=== PATIENT | male | born 1955 | race Caucasian/White ===

== ENCOUNTER → 2019-12-30 11:59 | Outpatient (BNVA) | payer MEDICAID, SELFPAY | PROVIDERS: Visit Provider Nurse Practitioner Family | DX: J44.9 Chronic obstructive pulmonary disease, unspecified (principal); R53.83 Other fatigue; Z12.5 Encounter for screening for malignant neoplasm of prostate; E55.9 Vitamin D deficiency, unspecified; Z79.899 Other long term (current) drug therapy; E78.2 Mixed hyperlipidemia | CPT/HCPCS: 80053; 80061; 81001; 82306; 83036; 84153; 84443; 85025 ==

== ENCOUNTER 2020-02-14 13:43 | Outpatient (CLI) | payer MEDICAID, SELFPAY ==
--- NOTE | 2020-02-14 14:00 | CT_ITS ---
WS: [id number] CTA ABDOMEN PELVIS TECHNIQUE: Noncontrast plus contrast enhanced CTA of the abdominal aorta with coronal and sagittal re formatted images and additional MIP Images. CLINICAL INFORMATION: F/U CTA COMPARISON: October 16, 2018 DLP: 2781.[address] scans at [facility] use at least one of these dose optimization techniques: automat ed exposure control; mA and/or kV adjustment per patient size (includes targeted exams where dose is matched to clinical indication); or iterative reconstruction. FINDINGS: Since the prior examination, interval placement of aortic endograft with biiliac extension. Excluded aneurysm sac is decreased in size since the prior examination. No evidence of endoleak on the delayed imaging. Celiac and SMA appear patent. Proximal renal arteries appear patent. Normal renal parenchym al enhancement. Common iliac arteries and external iliac arteries are patent. Aneurysm including the excluded aneurysm sac measures approximately 4.1 x 3.7 cm AP by transverse. Emphysematous changes in the lung bases. Diffuse fatty infiltration liver. Multiple low-attenuation w ell-circumscribed subcentimeter lesions in the liver some of which are too small to characterize but likely represent hepatic cysts. Exophytic left renal cyst measuring 11 mm. Tiny right renal cyst. Nor mal gastroesophageal junction. Tiny amount of sludge in the gallbladder.. Incidental fat-containing umbilical hernia. Additional rig ht periumbilical fat containing hernia. Three additional small midline supraumbilical hernias contain ing fat unchanged from previous. No herniated bowel. Diverticulosis. No evidence of acute diverticuli tis. No inguinal lymphadenopathy. Chronic bilateral pars defects. Slight anterolisthesis L5 on S1 domingo suring [address]/CT angio abdomen pelvis [id number] IMPRESSION: 1. Interval aortic endograft repair with biiliac extension. No evidence of end oleak. Interval decrease in size of the excluded aneurysm sac. 2. Proximal renal arteries are patent. Normal bilateral renal parenchymal enha ncement. 3. No other significant changes from previous. 4. Celiac and SMA are patent. 5. Multiple low-attenuation lesions in the liver some are too small to charact erize but likely hepatic cysts. This can be followed up with ultrasound. 6. Small amount of sludge in the gallbladder. This can also be followed up wit h ultrasound. 7. Prominent fat-containing umbilical hernia with adjacent right eccentric per iumbilical hernia also containing fat. No herniated bowel. Three additional sma ller fat-containing supraumbilical hernias in the midline.
[2020-02-14] MEDS: iohexol 350 mg/mL 100 mL Btl IV (14:56)
== END 2020-02-14 13:44 | disposition home or self-care (01) ==
PROVIDERS: PCP Family Medicine; Visit Provider Thoracic Surgery (Cardiothoracic Vascular Surgery)
DX: I71.4 Abdominal aortic aneurysm, without rupture (principal); K76.9 Liver disease, unspecified; K42.9 Umbilical hernia without obstruction or gangrene
CPT/HCPCS: 74174; Q9967

== ENCOUNTER 2020-08-17 07:54 | Outpatient (CLI) | payer MEDICAID, SELFPAY ==
--- NOTE | 2020-08-17 08:30 | CT_ITS ---
WS: [id number] CT CHEST WITHOUT INTRAVENOUS CONTRAST HISTORY: smoker, wheezing, TECHNIQUE: Contiguous 5 mm axial imaging performed on the thorax. Coronal and sagittal reformats are submitted. All CT scans at [facility] use at least one of these dose optimization techniq ues: automated exposure control; mA and/or kV adjustment per patient size (includes targeted exams wh ere dose is matched to clinical indication); or iterative reconstruction. CONTRAST: None DLP: 781.78 mGy.cm COMPARISON: 08/01/2020 Lungs and central airway: Marked pulmonary hyperexpansion with changes of centrilobular and parasepta l emphysema. Pleural thickening and areas of atelectasis or scar at the lingula and RIGHT middle lobe . Soft tissue mass in the medial RIGHT upper lobe abuts the mediastinal fat measuring 2.6 x 1.8 cm. T here is adjacent stranding extending towards the pleura. There are additional scattered areas of bron chiectasis in the RIGHT middle and RIGHT lower lobes. To a lesser extent the LEFT upper lobe also has bronchiectasis. Pleura: Normal. No pleural effusion. Heart and pericardium: Normal size heart with no pericardial effusion. Mediastinum and paola: No additional mediastinal or hilar adenopathy or lymph nodes identified. Vessels: Ectatic thoracic aorta and calcifications. Pulmonary artery size is normal. Chest wall and lower neck: No soft tissue masses. Upper abdomen: There are a few scattered hypodensities within the liver cannot be further characteriz ed without IV contrast. These are similar in size to 02/14/2020. The adrenal glands are normal. Status post endovascular grafting of aorta. The graft is only minimally visualized along its superior aspec t. There is an exophytic cyst from the upper pole of the LEFT kidney which was also seen on the prior study. Osseous structures: Increase in thoracic kyphosis. CT/CT chest wo con [id number] IMPRESSION: 1. Severe centrilobular and paraseptal emphysema. 2. Soft tissue nodule medial RIGHT upper lobe abuts the mediastinum measuring 2.6 x 1.8 cm. Not visualized on prior studies. This may be an area of chronic a telectasis, fibrosis or early neoplasm. Suggest repeat chest CT with IV contras t in 3 months to evaluate stability. IV contrast will be important for enhancem ent and to evaluate for adenopathy. 3. Multilobar mild bronchiectasis.
== END 2020-08-17 07:55 | disposition home or self-care (01) ==
LOC: CT 07:56
PROVIDERS: PCP Family Medicine; Visit Provider Family Medicine
DX: F17.200 Nicotine dependence, unspecified, uncomplicated (principal); R06.2 Wheezing; J43.2 Centrilobular emphysema; R91.1 Solitary pulmonary nodule; J47.9 Bronchiectasis, uncomplicated
CPT/HCPCS: 71046; 71250

== ENCOUNTER → 2020-09-21 12:31 | Outpatient (BNVA) | payer MEDICAID, SELFPAY | PROVIDERS: PCP Family Medicine; Visit Provider Internal Medicine Critical Care Medicine | DX: Z11.59 Encounter for screening for other viral diseases (principal); J44.9 Chronic obstructive pulmonary disease, unspecified | CPT/HCPCS: 87635 ==

== ENCOUNTER → 2021-12-20 11:17 | Outpatient (BNVA) | payer MEDICAID, SELFPAY | PROVIDERS: PCP Family Medicine; Visit Provider Family Medicine | DX: M54.9 Dorsalgia, unspecified (principal); G89.29 Other chronic pain; J44.9 Chronic obstructive pulmonary disease, unspecified; Z12.2 Encounter for screening for malignant neoplasm of respiratory organs; E78.2 Mixed hyperlipidemia; F17.200 Nicotine dependence, unspecified, uncomplicated | CPT/HCPCS: 80053; 80061; 83036; 84443; 85025; G0103 ==

== ENCOUNTER → 2025-07-25 08:43 | Outpatient (BNVA) | payer MEDICAID, SELFPAY | PROVIDERS: PCP Family Medicine; Visit Provider Nurse Practitioner Family | DX: J44.9 Chronic obstructive pulmonary disease, unspecified (principal); Z79.51 Long term (current) use of inhaled steroids; R91.1 Solitary pulmonary nodule; E55.9 Vitamin D deficiency, unspecified; K42.9 Umbilical hernia without obstruction or gangrene; R53.83 Other fatigue; Z79.899 Other long term (current) drug therapy; I70.0 Atherosclerosis of aorta; J98.4 Other disorders of lung | CPT/HCPCS: 71046; 80053; 80061; 81003; 82306; 82310; 83970; 84443; 85025 ==

== ENCOUNTER 2025-08-15 07:42 | Outpatient (CLI) | payer MEDICAID, SELFPAY ==
--- NOTE | 2025-08-15 08:30 | CT_ITS ---
WS: [id number] CT chest w con* [id number] HISTORY: R91.1 - Solitary pulmonary nodule TECHNIQUE: Axial imaging performed through the thorax. Coronal and sagittal reformats are submitted. All CT scans at [facility] use at least one of these dose optimization techniques: automated exposure control; mA and/or kV adjustment per patient size (includes targeted exams where dose is matched to clinical indication); or iterative reconstruction. CONTRAST: Omnipaque 350; 100 mL IV. DLP: 426.68 mGy.cm COMPARISON: 08/17/2020, chest radiograph 07/25/2025 Lungs and central airway: Severe pulmonary hyperexpansion. Paraseptal and centrilobular emphysema. Numerous consolidations within both lungs have developed since 08/17/2020. The largest nodule in the LEFT upper lobe measures 2.0 x 2.1 x 2.2 cm. There is a tiny central cavitation and also calcifications. Additional smaller irregular consolidation LEFT upper lobe measures 1.6 x 1.7 cm. Additional nodule measuring 0.5 x 0.8 cm in the superior segment LEFT lower lobe abutting the fissure. Additional 0.4 cm nodule LEFT lower lobe. Numerous irregular nodules RIGHT upper lobe. The largest measures 0.7 x 1.0 x 0.8 cm. This nodule is slightly spiculated. There are a few additional smaller nodules scattered in the RIGHT upper lobe. Nodule measures 0.7 x 0.9 cm in the as ago esophageal fissure. 0.5 mm nodule at the RIGHT lung base. Several of these nodules contain central calcifications. Pleura: Normal. No pleural effusion. Heart and pericardium: Normal size heart with no pericardial effusion. Mediastinum and paola: RIGHT hilar lymph node 14 mm is indeterminate. Vessels: Extensive atherosclerosis aorta. Pulmonary artery size is normal. Chest wall and lower neck: No soft tissue masses. Upper abdomen: Scattered hypodensities in the visualized liver. These appear to be present on the study from 2019. No adrenal mass. Bilateral renal cysts. Partially visualized abdominal aortic graft. Osseous structures: Mild increase in thoracic kyphosis. CT/CT chest w con* [id number] IMPRESSION: 1. Multi lobar pulmonary nodules. Some of these nodules are well-circumscribed and others are spiculated. The largest nodule 2.0 x 2.1 x 2.2 cm in the LEFT u pper lobe. Differential includes benign and malignant etiologies. Some of these nodules contain central calcifications which can be seen with benign and malig nant processes. Recommend follow-up PET/CT imaging at this time. 2. Severe paraseptal and centrilobular emphysema. 3. No adrenal mass. 4. Scattered hypodensities in the liver were present on the prior study from 2 020. Probably representing small cysts.
[2025-08-15] MEDS: iohexol 350 mg/mL 500 mL Btl (per mL) IV (08:31)
== END 2025-08-15 07:43 | disposition home or self-care (01) ==
LOC: RAD 07:43
PROVIDERS: PCP Family Medicine; Visit Provider Nurse Practitioner Family
DX: R91.1 Solitary pulmonary nodule (principal); J43.2 Centrilobular emphysema; R91.8 Other nonspecific abnormal finding of lung field
CPT/HCPCS: 71260

== ENCOUNTER → 2025-08-25 07:50 | Outpatient (BNVA) | payer MEDICAID, SELFPAY | PROVIDERS: PCP Family Medicine; Visit Provider Student in an Organized Health Care Education/Training Program | DX: K46.9 Unspecified abdominal hernia without obstruction or gangrene (principal); R03.0 Elevated blood-pressure reading, without diagnosis of hypertension | CPT/HCPCS: 99203 ==

== ENCOUNTER 2025-08-26 10:55 | Outpatient (CLI) | payer MEDICAID, SELFPAY ==
--- NOTE | 2025-08-26 11:00 | PETR_ITS ---
PROCEDURE INFORMATION: Exam: PET/CT Skull Base to Mid-thigh Exam date and time: 08/26/2025 12:05 PM Age: 70 years old Clinical indication: Abnormal findings; Abnormal CT; Additional info: R91.8 - other nonspecific abnormal finding of lung field, CT resulted 08/15/2025 multi lobar pulmonary nodules. Some LABS AND CLINICAL REPORTS: Glucose: 112 mg/dl Treatment strategy for malignancy (PET staging): Initial Staging (PI) TECHNIQUE: Imaging protocol: Following at least four-hour fasting and following the injection of radiopharmaceutical, low dose CT images were obtained. Then, PET images were obtained. Attenuation corrected images were constructed using the CT scan. Fused images of PET and CT were reviewed. The standardized uptake values (SUV) reported below are maximum values within a region of interest, expressed in gm/ml. Exam includes orbital meatal line to mid-thigh. SUV normalization method: BodyWeight Radiopharmaceutical: 11 mCi F-18 FDG (Fluorodeoxyglucose), IV. Time of imaging post radiopharmaceutical administration: 51 minutes Injection site: L AC COMPARISON: 1. CT chest w con* [id number] 08/15/2025 8:18 AM 2. PT PET Scan 09/23/2020 8:41 AM FINDINGS: Brain: Visualized brain has normal physiologic uptake. Salivary glands: FDG avid left parotid focus showing SUV max 14.8 on axial image 27, previously 6.9, with stable subtle suggested underlying mildly hyperdense nodule, likely represents benign primary neoplasm. Pharynx: No abnormal uptake. Larynx: No abnormal uptake. Lungs, pleura and trachea: Advanced upper lung predominant emphysematous change. Bilateral multilobar pulmonary nodules are partially calcified and largely non FDG-avid, index left upper lobe nodule measures 2.5 cm on axial image 64 with SUV max 2.3 of the medial aspect. More anterior focal area of reticulation with associated low-level FDG uptake showing SUV max 2.9, axial image 69, is likely inflammatory. Heart: Normal physiologic uptake. Coronary arteries: Mild coronary artery calcification. Mediastinal space: No abnormal uptake. Liver: No abnormal uptake. Redemonstrated simple appearing cyst and subcentimeter hypodensities too small to characterize. Gallbladder and biliary ducts: No abnormal uptake. Pancreas: No abnormal uptake. Spleen: No abnormal uptake. Adrenal glands: No abnormal uptake. Kidneys and ureters: Normal physiologic uptake. Simple appearing left renal cyst. Stomach and bowel: No abnormal uptake. Colonic diverticulosis without findings of diverticulitis. Vasculature: No abnormal uptake. Mild systemic atherosclerotic calcification with stable aorto bi-iliac stent graft. Lymph nodes: No abnormal uptake. No lymphadenopathy in the head, neck, chest, abdomen, pelvis, and extremities. Skeleton: No abnormal uptake in the visualized axial and appendicular skeleton. Degenerative changes along the spine and shoulders. Soft tissues: Linear [id number]-right neck and upper back muscle FDG uptake without underlying CT abnormality is likely benign physiologic activation and/or strain. Multiple fat containing ventral abdominal wall hernias, the largest located right lateral to the umbilicus with hernia sac measuring 5.6 cm on axial image 181. METRICS: Mediastinal blood pool: SUV mean 2.0 Liver uptake: SUV mean 2.4 PET/PET skull to thigh INIT [id number] IMPRESSION: 1. Bilateral multilobar pulmonary nodules are partially calcified and largely non FDG-avid with very low-level uptake at index medial left upper lobe nodule, likely benign. 2. Small focal area of reticulation with associated low-level FDG uptake at the left upper lobe is likely inflammatory. 3. Additional chronic and incidental findings as above.
== END 2025-08-26 10:56 | disposition home or self-care (01) ==
LOC: RAD 10:55
PROVIDERS: PCP Family Medicine; Visit Provider Nurse Practitioner Family
DX: R91.8 Other nonspecific abnormal finding of lung field (principal); N28.1 Cyst of kidney, acquired; K57.30 Diverticulosis of large intestine without perforation or abscess without bleeding; K43.9 Ventral hernia without obstruction or gangrene
CPT/HCPCS: 78815; A9552

== ENCOUNTER → 2025-09-01 08:23 | Outpatient (BNVA) | payer MEDICAID, SELFPAY | PROVIDERS: PCP Family Medicine; Referring Provider Nurse Practitioner Family; Visit Provider Internal Medicine | DX: R91.8 Other nonspecific abnormal finding of lung field (principal); J43.9 Emphysema, unspecified; D11.0 Benign neoplasm of parotid gland; F17.210 Nicotine dependence, cigarettes, uncomplicated; J44.9 Chronic obstructive pulmonary disease, unspecified | CPT/HCPCS: 99204 ==

== ENCOUNTER 2025-09-21 11:43 | Outpatient (CLI) | payer MEDICAID, SELFPAY ==
[2025-09-21 12:17] VITALS: PULSE 75; RESP 20; O2SAT 93
== END 2025-09-21 11:44 | disposition home or self-care (01) ==
LOC: RT 11:44
PROVIDERS: PCP Family Medicine; Visit Provider Internal Medicine
DX: J44.9 Chronic obstructive pulmonary disease, unspecified (principal)
CPT/HCPCS: 94060; 94726; 94729; J7613

== ENCOUNTER 2025-09-27 08:46 | Outpatient (CLI) | payer MEDICAID, SELFPAY ==
--- NOTE | 2025-09-27 09:00 | CT_ITS ---
WS: [id number] CT chest ION (PULM ONLY) [id number] HISTORY: Need CT prior to 10/05/25 procedure TECHNIQUE: Axial imaging performed through the thorax. Coronal and sagittal reformats are submitted. All CT scans at [facility] use at least one of these dose optimization techniques: automated exposure control; mA and/or kV adjustment per patient size (includes targeted exams where dose is matched to clinical indication); or iterative reconstruction. CONTRAST: None DLP: 354.72 mGy COMPARISON: 08/15/2025, PET/CT 08/26/2025 Imaging is obtained prior to bronchoscopy. Multiple, bilateral pulmonary nodules are identified on a background of centrilobular and paraseptal emphysema. Largest nodule in the LEFT upper lobe measures 2.7 x 1.9 cm and contains central calcifications. Numerous pulmonary nodules and additional opacifications are reidentified. There is a subtle cavitary lesion in the central LEFT upper lobe with a maximum diameter of 1.2 cm. No progression or improvement of the pulmonary nodules. Atherosclerosis aorta. No aneurysm. No adenopathy identified but this study was performed without IV contrast. Stent graft noted in the abdominal aorta. Exophytic cyst from the LEFT kidney is unchanged. CT/CT chest ION (PULM ONLY) [id number] IMPRESSION: CT imaging provided prior to navigational bronchoscopy.
== END 2025-09-27 08:47 | disposition home or self-care (01) ==
LOC: RAD 08:47
PROVIDERS: PCP Family Medicine; Visit Provider Internal Medicine
DX: R91.8 Other nonspecific abnormal finding of lung field (principal); I70.0 Atherosclerosis of aorta; N28.1 Cyst of kidney, acquired; J98.4 Other disorders of lung
CPT/HCPCS: 71250

== ENCOUNTER 2025-10-05 08:47 | Day surgery (SDC) | payer MEDICAID, SELFPAY ==
--- NOTE | 2025-10-04 10:48 | P.ANESASSM_ITS ---
Pre-Anesthetic Assessment Height/Weight: Height 5 ft 11 in Preop Diagnosis: Lung mass Operation Date: 10/05/25 11:00 Proposed Procedures p Ion - Robotic Bronch With EBUS(Not Applicable) - Kari Denton MD s Ebus(Not Applicable) - MD luis Fang Bronchoscopy(Not Applicable) - Kari Denton MD Was Beta Reynaldo taken within 24 hours: N/A Was Clonidine taken within 24 hours: N/A Social Tobacco and No alcohol Exam alert, oriented x 3 and regular rate & rhythm Diminished breath sounds throughout even with amplified stethoscope Airway Submandibular: within normal limits Cervical ROM: within normal limits Mallampati: Class III Comments: Comments: Huge patricio, Top dentures. Multiple missing teeth on the bottom. Denies any loose Anesthetic Plan ASA status: 4 Anesthesia: General Other: No prior issues with anesthesia NPO since yesterday evening History of GERD on Protonix History of COPD Uses inhaler when he needs it Aortic aneurysm repair in 2018 Preop visit by primary care physician suggest preop albuterol prior to procedure Labs 07/25/2025 reviewed acceptable for procedure Diminished breath sounds bilaterally. Preop DuoNeb planned METs less than 4 Plan for GETA Medications/Allergies Home Medications ?Medication ?Instructions ?Recorded ?Confirmed ?Last Taken ?Type nebulizer #1 ea 08/29/20 10/04/25 Unkn own Rx hydrocodone 10 mg-acetaminophen 1 tab PO Q6H PRN back pain 30 days 07/26/24 10/04/25 10/03/25 Rx 325 mg tablet #95 tabs albuterol sulfate 90 mcg/actuation 2 puff inhalation Q 6H PRN copd 30 11/23/24 10/04/25 10/02/25 Rx aerosol inhaler days #8.5 grams budesonide 160 mcg-glycopyr 9 2 inh inhalation BID #10 .7 grams 07/25/25 10/04/25 10/03/25 Rx mcg-formot 4.8 mcg/actuation HFA inhaler (Breztri Aerosphere) albuterol sulfate 0.63 mg/3 mL 0.63 mg (3 mL) inhalati on QID PRN 09/01/25 10/04/25 10/03/25 Rx solution for nebulization shortness of breath or wheez ing #90 mL ibuprofen 600 mg tablet 600 mg PO DAILY PRN Pain 11/ 13/25 12/16/25 Unknown Hist ory varenicline tartrate 0.5 mg (11)-1 See Rx Instructions PO PER PKG DIR 09/01/25 10/04/25 10/02/25 Rx mg (42) tablets in a dose pack #53 ea (Chantix Starting Month Box) pantoprazole 40 mg tablet,delayed 40 mg PO DAILY PRN h eart burn 10/03/25 10/04/25 Unknown History release Allergies Allergy/AdvReac Type Severity Reaction Status Date / Time No Known Allergies Allergy Verified 10/03/25 08:27 [facility] Anesthesia Medical History (Updated 09/06/25 @ 15:17 by EPHRAIM Howell) Nodule of parotid gland Centrilobular emphysema CT Chest 08/15/2025 Severe paraseptal and centrilobular emphysema. Lung mass Nodule of left lung Periumbilical hernia COPD on long-term inhaled steroid therapy Umbilical hernia without obstruction and without gangrene COPD with exacerbation Lower respiratory infection Encounter for smoking cessation counseling Vitamin D deficiency Medication management Abdominal aneurysm January 02, 2020 underwent endovascular repair of abdominal aortic aneurysm. Chronic back pain Chronic obstructive pulmonary disease, unspecified COPD type Social History Smoking and tobacco/nicotine status: current every day tobacco/nicotine user cigarettes Packs smoked per day: 2 Years cigarettes smoked: 40 Second hand smoke exposure: Yes Alcohol intake: former Substance/Drug Use: never Lives independently: Yes Household members: children Marital status: service: No Current occupational status: disabled Do you think of yourself as: Straight/Heterosexual Current gender identity: Male
[2025-10-05] VITALS (13 sets, daily range): BP systolic 111–140; BP diastolic 62–86; PULSE 69–82; RESP 16–23; TEMP 36.4–37.3; O2SAT 88–97; BMI 25.7
--- NOTE | 2025-10-05 09:13 | PM.HP ---
Providers/Chief Complaint Primary Care Provider: Tayo Aguilar MD Chief Complaint: R91.1 History of Present Illness This is a 70-year-old male with past medical history of COPD and multiple lung nodules 2.2 cm left upper lobe punctate calcifications, not PET avid here to establish care with me today referred by Dr. Han Meeting arranged after lung nodules were identified on CT. Smoking history of 50 years noted. Family history of lung cancer acknowledged. The patient recalls no severe prior lung infections. Discussed recent imaging: CT shows emphysema with a large nodule in the left upper lobe and smaller nodules on the right, along with calcified lymph nodes. PET scan did not show uptake in the nodules; however, it was explained that slow-growing lung cancers may not be detected on PET. Procedure timing discussed due to approaching holidays; the patient agreed to schedule a biopsy in early September. Reports using an inhaler and a nebulizer; Duoneb currently used once daily. Advised to use inhaler consistently every day. Wheezing was noted during the visit. Risks of general anesthesia- bleeding, pneumothorax, and rare cases cardiopulmonary collapse and explained to the patient and he agrees to proceed Data: CT chest 08/15/2025-left upper lobe 2.2 cm lung nodule with tiny central cavitations and calcifications, additional nodule 0.8 cm left lower lobe numerous other irregular nodules right upper lobe 0.8 cm, right hilar lymph node 14 mm PET/CT 08/26/2025-left upper lobe 2.5 cm lung nodule low PET uptake 2.9. Although with mild punctate central calcification still looks very suspicious for cancer. Medications/Allergies Home Medications ?Medication ?Instructions ?Recorded ?Confirmed ?Last Taken ?Type nebulizer #1 ea 08/29/20 10/04/25 Unknown Rx hydrocodone 10 mg-acetaminophen 1 tab PO Q6H PRN back pain 30 days 07/26/24 10/04/25 10/03/25 Rx 325 mg tablet #95 tabs albuterol sulfate 90 mcg/actuation 2 puff inhalation Q6H PRN copd 30 11/23/24 10/04/25 10/02/25 Rx aerosol inhaler days #8.5 grams budesonide 160 mcg-glycopyr 9 2 inh inhalation BID #10.7 grams 07/25/25 10/04/25 10/03/25 Rx mcg-formot 4.8 mcg/actuation HFA inhaler (Charotaggaphere) albuterol sulfate 0.63 mg/3 mL 0.63 mg (3 mL) inhalation QID PRN 09/01/25 10/04/25 10/03/25 Rx solution for nebulization shortness of breath or wheezing #90 mL ibuprofen 600 mg tablet 600 mg PO DAILY PRN Pain 09/01/25 10/04/25 Unknown History varenicline tartrate 0.5 mg (11)-1 See Rx Instructions PO PER PKG DIR 09/01/25 10/04/25 10/02/25 Rx mg (42) tablets in a dose pack #53 ea (Chantix Starting Month Box) pantoprazole 40 mg tablet,delayed 40 mg PO DAILY PRN heart burn 10/03/25 10/04/25 Unknown History release Allergies Allergy/AdvReac Type Severity Reaction Status Date / Time No Known Allergies Allergy Verified 10/03/25 08:27 PFSH Acute PFSH: Medical History (Updated 09/06/25 @ 15:17 by EPHRAIM Howell) Nodule of parotid gland Centrilobular emphysema CT Chest 08/15/2025 Severe paraseptal and centrilobular emphysema. Lung mass Nodule of left lung Periumbilical hernia COPD on long-term inhaled steroid therapy Umbilical hernia without obstruction and without gangrene COPD with exacerbation Lower respiratory infection Encounter for smoking cessation counseling Vitamin D deficiency Medication management Abdominal aneurysm January 02, 2020 underwent endovascular repair of abdominal aortic aneurysm. Chronic back pain Chronic obstructive pulmonary disease, unspecified COPD type Social History Smoking and tobacco/nicotine status: current every day tobacco/nicotine user cigarettes Packs smoked per day: 2 Years cigarettes smoked: 40 Second hand smoke exposure: Yes Alcohol intake: former Substance/Drug Use: never Lives independently: Yes Household members: children Marital status: service: No Current occupational status: disabled Do you think of yourself as: Straight/Heterosexual Current gender identity: Male Vitals/I&O/Wt Last Vital Signs Temp 99.2 F 10/05/25 09:06 Pulse 79 10/05/25 09:06 Resp 18 10/05/25 09:06 BP 134/77 10/05/25 09:06 Pulse Ox 91 10/05/25 09:06 O2 Del Method Room Air 10/05/25 09:06 Weight last 48 hrs Weight 185 lb A&P PDMP PDMP Reviewed: Not Reviewed Attestations Medical Necessity Statement*: for robotic navigational bronchoscopy Coding Level of Care Code Acute Code for Chg Fwd
[2025-10-05 09:38] LABS: Hematocrit 48.8 % (37-53); Hemoglobin 16.50 g/dL (11.27-16.99); Mean Corpuscular HGB Conc 33.8 g/dL (30-55); Mean Corpuscular Hemoglobin 31.1 pg (27-33); Mean Corpuscular Volume 92.1 fl (82-101); Nucleated Red Blood Cells % 0 %; Platelet Count 239 10^3/cmm (157-399); Red Blood Count 5.30 10^6/uL (3.85-5.65); White Blood Count 8.18 10^3/uL (3.29-11.43)
--- NOTE | 2025-10-05 09:45 | SC_ITS ---
WS: [id number] C-arm fluoroscopy for bronchoscopic biopsy, 10/05/2025 Clinical Data: ion Comparison: CT chest, 08/15/2025 Findings: Dr. Bertin guallpa performed left upper lobe bronchoscopic biopsy. SC/C-arm FL for Bronchoscopy Impression: Left upper lobe bronchoscopic biopsy.
[2025-10-05] MEDS: EPINEPHrine 1 MG in sodium chloride 0.9% (100 ml) 19 ML 999 MG XX (10:10)
[2025-10-05 10:42] LABS: INR 0.88 (0.8-1.2); Prothrombin Time 12.60 SECONDS (12.1-14.9)
--- NOTE | 2025-10-05 11:06 | P.OP_ITS ---
Procedure: Flexible bronchoscopy with complete mediastinal staging Attending: Kari Denton MD Indication: Left upper lobe mass Anesthesia: General anesthesia per anesthesia team Procedure: Pre-Anesthesia Assessment Time-Out: Immediately before the procedure, a time-out was conducted to confirm patient identification, procedure details, consent, image labeling, and the need for prophylactic antibiotics. This was verified by the physician, nurse, anesthesiologist, and mold washer. Outcome: The procedure was completed without difficulty, and the patient tolerated it well. Findings: A thorough airway exam was performed after passage of the bronchoscope. The trachea was anatomically normal. The right sided airway was anatomically normal without endobronchial lesions. Some secretions. The left sided airway was anatomically normal without endobronchial lesions. Some secretions. After confirming our location, we proceeded to sampling. Prior to sampling, confirmation of lesion location was done using: Fluroscopy with a tool overlying the lesion on at least one visual plane. The prior bronchoscope was removed from the airway. The [employer] Robotic Bronchoscopy platform was moved into place. The robotic bronchoscope was inserted into the endotracheal tube with care. The position of the bronchoscope was registered to a pre-existing CT scan using shape-sensing virtual bronchoscopy technology (30632). We navigated towards the lesion in the left upper lobe mass using a pre-planned route using virtual bronchoscopy Prior to sampling, confirmation of lesion location was done using: - Radial ultrasound probe with a concentric view (13261), - Fluroscopy with a tool overlying the lesion on at least one visual plane. - Virtual target located directly within the path of intended biopsy direction on EMN. Transbronchial biopsies of the lesion were performed using the captura 1.8 mm forceps). A total of 4 samples were obtained. ([id number]) Bronchoscopy with transbronchial needle aspiration biopsy, using floroscopy were performed. Total of 6 samples obtained. A bronchoalveolar lavage was performed of the lobe containing the target lesion with 65mL of saline instilled and 30 mL of effluent returned. Additional rinse from the bronchoscope lumen was added to the sample after removal of the scope. ([id number]) The prior bronchoscope was removed from the airway and the EBUS scope was inserted. A complete curvilinear EBUS procedure was performed of the following lymph nodes: Level 11R station was identified. No nodes met size criteria for biopsy. Level 10R station was identified. No nodes met size criteria for biopsy. Level 4R station was identified. No nodes met size criteria for biopsy. Level 7 station was identified. No nodes met size criteria for biopsy. Level 4L station was identified. No nodes met size criteria for biopsy. Level 10L station was identified. No nodes met size criteria for biopsy. Level 11L station was identified. No nodes met size criteria for biopsy. Following completion of all diagnostic and therapeutic procedures, hemostasis was verified. The scope was removed and procedure concluded. In summary, the following procedures were performed: 49647 BAL, (Bronchoalveolar Lavage), 21806 TBBX, (Transbronchial biopsies, first lobe), 42825 Bronchoscopy with transbronchial needle aspiration biopsy (TBNA) (first lobe) Kari Denton MD Pulmonary and Critical Care
--- NOTE | 2025-10-05 11:16 | XR_ITS ---
WS: [id number] Portable AP upright chest, 10/05/2025 Clinical Data: post bronch Comparison: Two-view chest, 07/25/2025 Findings: The left upper lobe nodule is still faintly visible. No postbiopsy hemorrhage is seen. The diaphragms are flattened. The aortic arch shows calcification. Monitor leads are on the chest wall. XR/XR chest 1V portable [id number] Impression: Negative post bronchoscopic biopsy chest.
[2025-10-05 11:36] LABS: Cyto Order Verification Order Verified
--- NOTE | 2025-10-05 12:07 | PC.NURSE ---
Verbal order for Pam per Dr Lindo. Pt O2 sat drop to 86-90 on room air. Placed on Nasal Cannula at 3 liters. Brought up sats to 93-94 %.
[2025-10-05 12:19] LABS: Total Cells Counted Bronch 200
[2025-10-05 12:20] LABS: Apprearance, Bronch Wash Clear (CLEAR); Eosinophils % Bronch 0.00 % (0.13-0.25); Lymphocytes % Bronch 9.00 % (10.71-12.91); Macrophages % Bronch 84.00 % (83.6-86.8); Neutrophils % Bronch 7.00 % (0.9-2.3); Other Cells, Bronch Wash 0 %
--- NOTE | 2025-10-05 12:40 | PC.NURSE ---
Breathing treatment completed. Pt will need to maintain O2 sat at 90-92% after 15 mins before seeking admission
--- NOTE | 2025-10-05 13:15 | ANE.PACU2 ---
Inpatient post-anesthesia follow up: Airway intact: Yes Vital signs: Temperature 98.5 F Pulse Rate 70 Respiratory Rate 18 Blood Pressure 125/81 Pulse Oximetry 96 Oxygen Delivery Me thod T-Piece Oxygen Flow Rate 5 Fraction of Inspir ed Oxygen Hydration adequate: Yes Nausea and vomiting: No Pain level: 1 Mental status: Baseline
[2025-10-07 21:35] LABS: Aspergillus Source Other; Aspergillus Supp Not Detected (Not Detected); Aspergillus Terreus DNA Not Detected (Not Detected)
== END 2025-10-05 13:15 | disposition home or self-care (01) ==
PROVIDERS: PCP Family Medicine; Visit Provider Internal Medicine
PROC: 0BJ08ZZ Inspection of Tracheobronchial Tree, Via Natural or Artificial Opening Endoscopic (ICD-10-PCS; CPT 31622; principal; 2025-10-05 09:10)
PROC: BB4BZZZ Ultrasonography of Pleura (ICD-10-PCS; 2025-10-05 09:10)
PROC: 0BJ08ZZ Inspection of Tracheobronchial Tree, Via Natural or Artificial Opening Endoscopic (ICD-10-PCS; CPT 31622; 2025-10-05 09:10)
DX: R91.8 Other nonspecific abnormal finding of lung field (principal); J44.9 Chronic obstructive pulmonary disease, unspecified; K21.9 Gastro-esophageal reflux disease without esophagitis; Z79.891 Long term (current) use of opiate analgesic; F17.210 Nicotine dependence, cigarettes, uncomplicated; Z80.1 Family history of malignant neoplasm of trachea, bronchus and lung
CPT/HCPCS: 31624; 31628; 31629; 36415; 71045; 76000; 85025; 85610; 86606; 87015; 87070; 87077; 87102; 87116; 87186; 87205; 87206; 87252; 87385; 87449; 87798; 87801; 88112; 88305; 88312; 88342; 89050; A9270; J1100; J2405; J2704; J3010; J3490; J7030; J7613; J9999